=== PATIENT | male | born 1975 | race Hispanic/Latino ===

== ENCOUNTER 2023-12-25 09:44 | Emergency (ER) | payer OTHER ==
[~2023-12-25] VITALS: Ht 167.6 cm; Wt 88.0 kg
[2023-12-25] VITALS (10 sets, daily range): BP systolic 106–139; BP diastolic 65–92
[2023-12-25] MEDS ORDERED: KETOROLAC TROMETHAMINE 30 MG/ML SDV IV ONE (11:10)
[2023-12-25] MEDS ORDERED: ACETAMINOPHEN 500 MG TAB PO ONE (11:10)
[2023-12-25] MEDS ORDERED: SODIUM CHLORIDE 0.9% 1,000 ML IV ONE (11:10)
[2023-12-25] MEDS ORDERED: ONDANSETRON HCl 4 MG/2 ML SDV IV ONE (11:10)
[2023-12-25 12:09] LABS: BASO% 0.3 % (0-3); EOS% 0.2 % (0-8); HEMATOCRIT 44.6 % (39.0-50.0); HEMOGLOBIN 15.8 g/dl (14.0-18.0); IMMATURE GRANULOCYTES 0.2 % (0.0-5.0); LYMPH% 10.7 % (15-41); MEAN CELL VOLUME 95.9 fL CALC (80.0-100.0); MEAN CORPUSCULAR HGB CONC 35.4 g/dL CAL (32.0-36.0); MONO% 4.4 % (2-13); NEUT# 5.62 thou/uL (1.82-7.42); NEUT% 84.2 % (42-76); RED BLOOD COUNT 4.65 mill/uL (4.70-6.10)
[2023-12-25 12:14] LABS: ALBUMIN 4.7 g/dL (3.2-5.0); BILIRUBIN, TOTAL 0.7 mg/dL (0.2-1.3); POTASSIUM 4.3 mmol/l (3.5-5.1); TOTAL PROTEIN 7.7 g/dL (6.3-8.2)
[2023-12-25 12:32] LABS: URINE BILIRUBIN - DIPSTICK Negative (NEGATIVE); URINE BLOOD DIPSTICK Trace-lysed (NEGATIVE); URINE GLUCOSE - DIPSTICK Negative (NEGATIVE); URINE KETONE Negative (NEGATIVE); URINE LEUK ESTERASE Negative (NEGATIVE); URINE NITRITE - DIPSTICK Negative (Negative); URINE PH 5.5 (4.5-8.0); URINE PROTEIN - DIPSTICK Negative (NEG-TRACE); URINE SPECIFIC GRAVITY 1.025; URINE UROBILINOGEN - DIPSTICK 0.2 E.U./dL (0.2)
[2023-12-25 12:33] LABS: URINE COLOR Yellow
[2023-12-25] MEDS ORDERED: DECADRON4 MG PO (13:07)
[2023-12-25] MEDS ORDERED: DEXAMETHASONE SOD. PHOSPHATE 10 MG/ML VIAL IV ONE (13:10)
== END 2023-12-25 13:30 | disposition home or self-care (01) | DRG 866 ==
LOC: ED 09:44
PROVIDERS: Family Medicine
DX: B27.90 Infectious mononucleosis, unspecified without complication (principal); Z20.822 Contact with and (suspected) exposure to COVID-19

== ENCOUNTER 2023-12-28 10:00 | Emergency (ER) | payer OTHER ==
[2023-12-28] VITALS (9 sets, daily range): BP systolic 117–132; BP diastolic 71–90
[~2023-12-28] VITALS: Ht 167.6 cm; Wt 90.7 kg
[~2023-12-28 10:00] MED LIST: DECADRON4 MG PO
[2023-12-28] MEDS ORDERED: KETOROLAC TROMETHAMINE 30 MG/ML SDV IV ONE (10:15)
[2023-12-28] MEDS ORDERED: SODIUM CHLORIDE 0.9% 1,000 ML IV ONE ×2 (10:15→11:30)
[2023-12-28 10:49] LABS: EOS% 0.4 % (0-8); HEMATOCRIT 38.9 % (39.0-50.0); IMMATURE GRANULOCYTES 0.4 % (0.0-5.0); LYMPH% 14.9 % (15-41); MEAN CELL VOLUME 96.5 fL CALC (80.0-100.0); MEAN CORPUSCULAR HGB CONC 35.2 g/dL CAL (32.0-36.0); NEUT# 3.42 thou/uL (1.82-7.42); NEUT% 76.3 % (42-76); RED BLOOD COUNT 4.03 mill/uL (4.70-6.10)
[2023-12-28 10:57] LABS: HEMOGLOBIN 13.7 g/dl (14.0-18.0)
[2023-12-28 11:03] LABS: ALBUMIN 3.8 g/dL (3.2-5.0); ALKALINE PHOSPHATASE 59 u/l (38-126); ANION GAP 6 (6-22 (CALC)); BILIRUBIN, TOTAL 0.6 mg/dL (0.2-1.3); BUN 19 mg/dL (9-20); BUN/CREATININE RATIO 18 (12-20 (CALC)); CARBON DIOXIDE 23 mmol/l (22-30); CHLORIDE 109 mmol/l (95-108); CREATININE 1.1 mg/dL (0.7-1.3); ESTIMATED GFR 82 ML/MIN (>=90 (CALC)); POTASSIUM 3.8 mmol/l (3.5-5.1); SGOT/AST 56 u/l (17-59); SODIUM 134 mmol/l (137-146); TOTAL PROTEIN 6.8 g/dL (6.3-8.2)
[2023-12-28] MEDS ORDERED: DEXAMETHASONE SOD. PHOSPHATE 10 MG/ML VIAL IV ONE (11:30)
[2023-12-28] MEDS ORDERED: MOTRIN400 MG/TAB PO (12:35)
[2023-12-28] MEDS ORDERED: DECADRON4 MG PO (12:35)
== END 2023-12-28 13:07 | disposition home or self-care (01) | DRG 866 ==
LOC: ED 10:00
PROVIDERS: Family Medicine
DX: B27.90 Infectious mononucleosis, unspecified without complication (principal); Z72.0 Tobacco use